=== PATIENT | female | born 1995 | race Caucasian/White ===

== ENCOUNTER 2021-04-12 05:45 | Observation (INO) | payer BC, SELFPAY ==
[2021-04-12] VITALS (12 sets, daily range): BP systolic 106–120; BP diastolic 59–88; PULSE 79–93; TEMP 36.8–36.9; BMI 27.1
--- NOTE | ~2021-04-12 | US_ITS ---
EXAMINATION: US OB limited EXAM DATE: 04/12/2021 07:44 INDICATION: Vaginal bleeding. 2nd trimester. TECHNIQUE: Pelvic obstetrical transabdominal sonogram was performed by a technologist. There are mu ltiple grayscale and Doppler images available for interpretation. There are no earlier studies of th is gestation for comparison. FINDINGS: There is a single fetus identified in vertex presentation with a heart rate of 144 beats pe r minute. The placenta is located in the posterior previa position, placental margin appears to be co vering the internal cervical os. There is no sonographic evidence of retroplacental hemorrhage ident ified. IMPRESSION: 1. Single fetus in vertex presentation with heart rate 144 beats per minute. 2. Placenta posterior previa in position, margin appears to be covering the internal cervical os. Fo llow-up indicated. Reviewed, dictated and finalized at location D. IMPRESSION: 1. Single fetus in vertex presentation with heart rate 144 beats per minute. 2. Placenta posterior previa in position, margin appears to be covering the in ternal cervical os. Follow-up indicated.
--- NOTE | 2021-04-12 06:37 | OBADM ---
This patient, Sade Jose, admitted to the OB room OB Post 117 for observation. Patient/family oriented to hospital policies and general routines including ID bracelet, bed and alarms, visiting hours, pain management, procedures, bathroom and other care routines, personal items, smoking policy, room service/diet, and visiting hours. Patient/Family are encouraged to report perceived risks to care and to ask questions if they do not understand what they are told or what they should do.
--- NOTE | 2021-04-12 08:25 | PM.IMHP ---
H&P: HPI History of Present Illness Date/Time: 04/12/21 08:25 this patient is a 25-year-old multiparous female at 17 weeks gestation who presented with bright red vaginal bleeding. There was a moderate to heavy amount of bleeding at times. She denies any cramping. She denies any nausea, vomiting, fever, chills. She denies any recent intercourse. She denies any recent excessive physical activity. She denies any chest pain or shortness of breath. She denies any loss of fluid. Chief Complaint: Vaginal bleeding Review of Systems Review of Systems: All systems reviewed & are unremarkable except as noted in HPI and below Meds Home Medications and Allergies Allergies Allergy/AdvReac Type Severity Reaction Status Date / Time No Known Allergies Allergy Unknown Unverified 04/30/19 03:15 Vital Signs Vital Signs - 24 hr 04/12/21 06:09 04/12/21 06:15 04/12/21 06:30 Pulse Rate 87 85 93 Blood Pressure 108/71 114/74 106/88 04/12/21 08:01 Pulse Rate 85 Blood Pressure 108/59 L Exam Const: General: healthy appearing, comfortable and no acute distress Resp: Auscultation: clear to auscultation bilaterally, no rales, no rhonchi and no wheezes Cardio: Rate: regular rate Heart sounds: no click, no murmurs and no rubs GI: Inspection: non-distended Auscultation: normal bowel sounds Extrem: General: normal to inspection, no pedal edema and no calf tenderness Assessment and Plan Assessment and plan (1) Partial placenta previa with hemorrhage during in second trimester: Code(s): O44.32 - Partial placenta previa with hemorrhage, second trimester Status: Acute Additional Plan 25-year-old at 17 weeks, multiparous, placenta previa, complete previa. Observed. Ultrasound today revealed previa. She had 2 episodes of bleeding at this point. We are going to continue to observe. She will be discharged if there is a significant period of no bleeding.
[2021-04-12 09:06] LABS: Hematocrit 37.2 % (37.0-47.0); Hemoglobin 12.2 g/dL (12.0-15.0); Mean Corpuscular HGB Conc 32.8 g/dl (32-36); Mean Corpuscular Hemoglobin 30.5 pg (26-34); Mean Platelet Volume 9.1 fl (7.4-10.4); Platelet Count Result 192 k/mm3 (150-375); Red Cell Distribution Width 12.5 % (11.5-14.5); White Blood Count 8.4 K/mm3 (4.5-10.0)
[2021-04-12] MEDS: ACETAMINOPHEN 325 MG TABLET 650 MG PO (16:42)
[2021-04-13] VITALS (9 sets, daily range): BP systolic 109–125; BP diastolic 56–70; PULSE 72–87; TEMP 36.3–36.8; O2SAT 99
--- NOTE | 2021-04-13 07:22 | WPDHPUPDATE1 ---
History and Physical Update Update Date/Time: 04/13/21 07:22 Pt feeling well. Did have 1 episode of bleeding overnight where she passed blood that weighed 95cc. Since has had spotting. VSS Scant spotting on pad. No active bleeding. Plan to continue observation. History and Physical has been reviewed, including an updated exam of the patient. There are NO changes in the patient's condition. Risks, benefits, and alternatives have been discussed and questions answered. Patient agrees to proceed with procedure.
[2021-04-13 11:45] LABS: Hematocrit 35.5 % (37.0-47.0); Hemoglobin 11.8 g/dL (12.0-15.0)
--- NOTE | 2021-04-13 13:37 | PCDIET ---
calld Libra and updated pt condition and H/H result. discharge order received with follow up in early next week.
== END 2021-04-13 14:40 | disposition home or self-care (01) ==
PROVIDERS: Advanced Practice Midwife; Admitting Provider Obstetrics & Gynecology; Visit Provider Obstetrics & Gynecology
DX: O44.32 Partial placenta previa with hemorrhage, second trimester (principal); Z3A.17 17 weeks gestation of pregnancy
CPT/HCPCS: 36415; 76815; 85014; 85018; 85027; 86850; 86900; 86901; A9270; G0378; G0379

== ENCOUNTER 2021-06-03 22:28 | Observation (INO) | payer BC, SELFPAY ==
--- NOTE | ~2021-06-03 | US_ITS ---
EXAMINATION: US OB limited DATE: 06/04/2021 00:30 INDICATION: Spotting. Second trimester. TECHNIQUE: Real-time ultrasound of the pelvis was performed. COMPARISON: Ultrasound 04/12/2021 FINDINGS: There is a single fetus in transverse lie. The placenta is posterior and covers the cervix. There ar e multiple small subchorionic hematomas measuring up to 2.1 x 0.6 x 2.0 cm. heart rate is 138 b eats per minute (bpm). The amniotic fluid index is 11.8 cm cm, which is normal. IMPRESSION: 1. Single living fetus in transverse lie. 2. Placenta previa. 3. Small subchorionic hematomas. Reviewed, dictated and finalized at location A. [employer]
[2021-06-03 23:12] VITALS: BP 112/60; PULSE 83
[2021-06-03 23:30] VITALS: BP 107/67; PULSE 84
[2021-06-04] VITALS: BP 106/67; PULSE 83
[2021-06-04] MEDS: LACTATED RINGERS 1,000 ML 125 ML IV CONT (00:35)
[2021-06-04 00:49] LABS: Add Urine Microscopic? YES; Appearance Urine Clear (Clear); Bilirubin Urine Negative (Negative); Blood Urine 2+ (Negative); Color Urine Straw (Yellow); Glucose Urine UA Negative (Negative); Ketones Urine Negative (Negative); Leukocyte Esterase Ur Negative LEU/UL (Negative); Mucus Urine Rare /lpf; Nitrate Urine Negative (Negative); Protein Urine Negative (Negative); RBC Urine 0-2 /hpf (0-2); Specific Grav Ur 1.008 (1.001-1.035); Squamous Epithelial Cell Urine Rare /hpf (Few); Urobilinogen Urine Negative mg/dL (<2.0); WBC Urine 0-3 /hpf
[2021-06-04] MEDS: BETAMETHASONE SOD PHOS/ACETATE 30 MG/5 ML VIAL 12 MG IM (03:04)
[2021-06-04 06:32] VITALS: TEMP 37.3
[2021-06-04 06:36] VITALS: BP 110/66; PULSE 85
[2021-06-04 06:59] VITALS: BMI 27.1
--- NOTE | 2021-06-04 08:24 | P.HP_ITS ---
H&P: HPI History of Present Illness Date/Time: 06/04/21 08:24 Chief Complaint: bleeding with previa Narrative: Sade is at 25+ weeks who has known placenta previa and borderline vasa previa per [facility]. She had some spotting and presented overnight. NO spotting since. Is on light activity and pelvic rest and has been following both of these. Denies pain, contractions, leaking. Good FM. Did have a pos ROM plus on admission, but qtip had some blood on it. ANITA was 11+. Review of Systems Review of Systems: All systems reviewed & are unremarkable except as noted in HPI and below Meds Home Medications and Allergies Home Medications Medication Instructions Recorded Confirmed Type 1 tablet PO DAILY 04/12/21 06/04/21 History Allergies Allergy/AdvReac Type Severity Reaction Status Date / Time No Known Allergies Allergy Unknown Unverified 04/30/19 03:15 Vital Signs Vital Signs - 24 hr 06/03/21 23:12 06/03/21 23:30 06/04/21 00:00 Temperature Pulse Rate 83 84 83 Blood Pressure 112/60 107/67 106/67 06/04/21 06:32 06/04/21 06:36 Temperature 99.1 F Pulse Rate 85 Blood Pressure 110/66 Exam Const: General: no acute distress Resp: Effort & Inspection: normal respiratory effort Auscultation: clear to auscultation bilaterally Cardio: Rate: regular rate Rhythm: regular rhythm GI: GI Palp: Yes Soft to palpation Extrem: General: normal to inspection H&P: Results Labs Labs: Urine 06/04/21 Range/Units 00:40 Urine Color Straw (Yellow) Urine Appearance Clear (Clear) Urine pH 7.0 (5.0-9.0) Ur Specific [place] 1.008 (1.001-1.035) Urine Protein Negative (Negative) mg/dL Urine Glucose (UA) Negative (Negative) mg/dL Assessment and Plan Assessment and plan (1) Partial placenta previa with hemorrhage during in second trimester: Code(s): O44.32 - Partial placenta previa with hemorrhage, second trimester Status: Acute Additional Plan Received first celestone. will get second outpatient if DCed. no further spotting. will ambulate this am, if no further bleeding, may DC home. Has FU with [facility] tomorrow.
== END 2021-06-04 09:24 | disposition home or self-care (01) ==
PROVIDERS: Advanced Practice Midwife; Admitting Provider Obstetrics & Gynecology; Visit Provider Obstetrics & Gynecology
DX: O44.32 Partial placenta previa with hemorrhage, second trimester (principal); Z3A.25 25 weeks gestation of pregnancy
CPT/HCPCS: 76815; 81001; 84112; 96360; 96361; 96372; G0378; G0379; J0702; J7120

== ENCOUNTER 2021-06-05 08:08 | Outpatient (CLI) | payer BC, SELFPAY ==
[2021-06-05] MEDS: BETAMETHASONE SOD PHOS/ACETATE 30 MG/5 ML VIAL 12 MG IM (08:37)
== END 2021-06-05 08:09 | disposition home or self-care (01) ==
LOC: ANHOBOP 08:15
PROVIDERS: Visit Provider Obstetrics & Gynecology
DX: O36.8990 Maternal care for other specified fetal problems, unspecified trimester, not applicable or unspecified (principal)
CPT/HCPCS: 96372; J0702

== ENCOUNTER 2021-09-10 07:08 | Inpatient (IN) | payer BC, SELFPAY ==
[2021-09-10] VITALS (29 sets, daily range): BP systolic 84–128; BP diastolic 39–97; PULSE 71–113; RESP 16; TEMP 36.8–37.2; O2SAT 100; BMI 29.0
--- OUTSIDE RECORDS SUMMARY | 2021-09-10 07:12 | XMS_ITS | Encounter Summary ---
:1995 Author Reason for Visit OB visit [id number] EDC 09/14/2021 LMP 01/05/2021 Assessment and Plan Assessment Note Patient is _34__weeks . Dis cussed plan. 1. Routine care Discussion Note: None recorded.Patient educational handouts: No information available. Plan of Care Reminders Provider Appointments None ? ? recorded. Lab None ? ? recorded. Referral None ? ? recorded. Procedures None ? ? recorded. Surgeries None ? ? recorded. Imaging None ? ? recorded. Medications Name Start Date ? ? nifedipine 10 mg capsule ? TAKE 1 CAPSULE BY MOUTH EVERY 4 HOURS NEEDED FOR C RAMPING / CONTRACTIONS ? Medications Administered None recorded. Vitals Height Weight BMI Blood Pressure 5 ft 7 in 204 lbs 32 kg/m2 119/76 mm[Hg] Results Lab Results None recorded. Allergies Code Code System Name Reaction Severity Onset NKDA ? ? ? Problems Name Status Onset Date Source ? Active 03/12/2021 ? Subchorionic Hematoma Active ? ? Proc
--- OUTSIDE RECORDS SUMMARY | 2021-09-10 07:12 | XMS_ITS | Encounter Summary ---
:1995 Author Reason for Visit OB visit OB [id number] EDC 09/14/2021 LMP 01/05/2021 Assessment and Plan Assessment Note Patient is __36_weeks . Dis cussed plan. 1. Routine care [...] ft 7 in 204 lbs 32 kg/m2 109/73 mm[Hg] Results Lab Results None recorded. Allergies Code Code System Name Reaction Severity Onset NKDA ? ? ? Problems Name Status Onset Date Source ? Active 03/12/2021 ? Subchorionic Hematoma Active ? ? Pro
--- OUTSIDE RECORDS SUMMARY | 2021-09-10 07:12 | XMS_ITS ---
:1995 Author Care Team Providers Name Role Phone Shari Chowdhury Primary Care Provider Unavailable Allergies Code Code System Name Reaction Severity Status Onset NKDA ? Medications Name Status Start Date Stop Date ? ? nifedipine 10 mg capsule Active ? Not wyatt ilable TAKE 1 CAPSULE BY MOUTH EVERY 4 HOURS NEEDED FOR CRAMPING / CONTRACTIONS Active ? Not available Triveen-Duo DHA 29 mg-1 mg-400 mg oral pack Completed 11/2502/27/2021 take 1 by Oral route Viberzi 75 mg tablet Completed ? 02/27/2021 take 1 tablet by oral route 2 times every day Problems Name Status Onset Date Source ? SNOMED CT Concept Unknown 03/03/[address] Concept Unknown 03/03/2016 History Active 03/12/2021 ? Placenta Previa with Hemorrhage Unknown ? ? Placenta Succenturiata Unknown ? ? Subchorionic Hematoma Active ? ? Low Lying Placenta Unknown ? ? Procedures Date Name Performed by ? 07/27/2008 Meniscal Trnspl Knee W/scpe Information not available 03/04/2021 US, Obstetric, 1St Trimester [place] [address] [place] [address] ([address]) 03/12/2021 US, Obstetric, Nuchal Translucency [place] [address] [place] [address]
--- OUTSIDE RECORDS SUMMARY | 2021-09-10 07:12 | XMS_ITS | Encounter Summary ---
:1995 Author Reason for Visit OB visit OB [id number] EDC 09/14/2021 LMP 01/05/2021 Assessment and Plan Assessment Note Patient is 37___weeks . Dis cussed plan. 1. test positive Discussion Note: None recorded.Patient educational handouts: No [...] BMI Blood Pressure 5 ft 7 in 205 lbs 32.1 kg/m2 114/73 mm[Hg] Results Lab Results None recorded. Allergies Code Code System Name Reaction Severity Onset NKDA ? ? ? Problems Name Status Onset Date Source ? Active 03/12/2021 ? Subchorionic Hematoma Active ? ? Pr
--- OUTSIDE RECORDS SUMMARY | 2021-09-10 07:12 | XMS_ITS | Encounter Summary ---
:1995 Author Reason for Visit OB visit Assessment and Plan 1. Placenta succenturiata Discussion Note: None recorded.Patient educational handouts: No [...] BMI Blood Pressure 5 ft 7 in 192 lbs 30.1 kg/m2 117/73 mm[Hg] Results Lab Results None recorded. Allergies Code Code System Name Reaction Severity Onset NKDA ? ? ? Problems Name Status Onset Date Source ? Active 03/12/2021 ? Subchorionic Hematoma Active ? ? Procedures Date Name Performed by ? 07/27/2008 Meniscal Trnspl Knee W/scpe Information not avail
--- OUTSIDE RECORDS SUMMARY | 2021-09-10 07:12 | XMS_ITS | Encounter Summary ---
:1995 Author Reason for Visit OB visit Assessment and Plan 1. Low lying placenta 2. Subchorionic hematoma Discussion Note: None recorded.Patient educational handouts: No [...] BMI Blood Pressure 5 ft 7 in 200 lbs 31.3 kg/m2 112/72 mm[Hg] Results Lab Results None recorded. Allergies Code Code System Name Reaction Severity Onset NKDA ? ? ? Problems Name Status Onset Date Source ? Active 03/12/2021 ? Subchorionic Hematoma Active ? ? Procedures Date Name Performed by ?
--- OUTSIDE RECORDS SUMMARY | 2021-09-10 07:12 | XMS_ITS | Encounter Summary ---
:1995 Author Reason for Visit OB visit Assessment and Plan 1. Subchorionic hematoma 2. Routine care Discussion Note: None recorded.Patient educational [...] BMI Blood Pressure 5 ft 7 in 202 lbs 31.6 kg/m2 115/73 mm[Hg] Results Lab Results None recorded. Allergies Code Code System Name Reaction Severity Onset NKDA ? ? ? Problems Name Status Onset Date Source ? Active 03/12/2021 ? Subchorionic Hematoma Active ? ? Procedures Date Name Performed by ?
--- NOTE | 2021-09-10 07:39 | PM.IMHP ---
H&P: HPI History of Present Illness Date/Time: 09/10/21 07:39 Chief Complaint: induction of labor Narrative: Sade is a 25yo at 39w3d for eIOL. Her has been complicated by a large MARIA ELENA, up to 14cm at one point, but has been resolving since. She also had a previa which resolved. Review of Systems Review of Systems: All systems reviewed & are unremarkable except as noted in HPI and below PMFSH Family History Family History (Updated 08/15/21 @ 13:48 by Sharona Guerrero RN) Other No pertinent family history Social History Social History Substance use: never Spiritual care concerns: No Meds Home Medications and Allergies Home Medications Medication Instructions Recorded Confirmed Type 1 tablet PO DAILY 04/12/21 08/15/21 History Allergies Allergy/AdvReac Type Severity Reaction Status Date / Time No Known Allergies Allergy Unknown Unverified 04/30/19 03:15 Exam Const: General: no acute distress Resp: Effort & Inspection: normal respiratory effort Auscultation: clear to auscultation bilaterally Cardio: Rate: regular rate Rhythm: regular rhythm GI: GI Palp: Yes Soft to palpation : Other: Extrem: General: normal to inspection Assessment and Plan Additional Plan Here for induction of labor- GBS pos FHT category 1
[2021-09-10 07:47] LABS: Basophils Percent Auto 0.5 % (0.2-1.2); Eosinophils Absolute Auto 0.1 K/mm3 (0-0.3); Hematocrit 36.9 % (37.0-47.0); Hemoglobin 11.9 g/dL (12.0-15.0); Immature Granulocyte Absolute 0.06 K/mm3 (0.00-0.031); Immature Granulocyte Percent A 0.8 % (0-0.5); Lymphocytes Absolute Auto 1.34 K/mm3 (0.9-3.2); Lymphocytes Percent Auto 16.8 % (18.3-44.2); Mean Corpuscular HGB Conc 32.2 g/dl (32-36); Mean Corpuscular Hemoglobin 27.5 pg (26-34); Mean Corpuscular Volume 85.4 fl (80-100); Mean Platelet Volume 9.2 fl (7.4-10.4); Monocytes Absolute Auto 0.4 K/mm3 (0.1-0.6); Monocytes Percent Auto 4.4 % (2.6-8.5); Neutrophils Absolute Auto 6.1 K/mm3 (1.3-6.7); Neutrophils Percent Auto 76.5 % (45.5-73.1); Platelet Count Result 159 k/mm3 (150-375); Red Blood Count 4.32 M/mm3 (4.2-5.4); Red Cell Distribution Width 13.6 % (11.5-14.5)
[2021-09-10] MEDS: AMPICILLIN 2 GM/NS 100 ML 2 GM/100 ML BAG IVPB (07:50)
[2021-09-10] MEDS: OXYTOCIN 30 UNITS/NS 500 ML 30 UNITS/500 ML BAG IV CONT ×2 (07:50→21:10)
--- NOTE | 2021-09-10 08:07 | LDADM ---
This patient, Sade Jose, was admitted to Labor/Delivery/Recovery 106 on 09/10/21 at 07:08. Plans for labor, pain management and were discussed with patient. Patient/family oriented to hospital policies and general routines including ID bracelet, bed and alarms, visiting hours, pain management, procedures, bathroom and other care routines, personal items, smoking policy, room service/diet and guest tray routines, infant security routines, and visiting hours. Patient/Family are encouraged to report perceived risks to care and to ask questions if they do not understand what they are told or what they should do. See OBIX for further documentation.
[2021-09-10] MEDS: LACTATED RINGERS 1,000 ML 125 ML IV CONT ×2 (08:12→17:53)
[2021-09-10] MEDS: AMPICILLIN 1 GM/NS 50 ML 1 GM/50 ML BAG IVPB ×3 (12:04→20:15)
[2021-09-10] MEDS: miSOPROStol 200 MCG TABLET 1000 MCG (20:40)
[2021-09-10] MEDS: LIDOCAINE HCL 1% PF 30 ML VIAL (20:45)
[2021-09-10] MEDS: METHYLERGONOVINE MALEATE 0.2 MG/ML VIAL IM (20:47)
[2021-09-10] MEDS: MORPHINE SULFATE (*CRX) 2 MG/ML INJ (20:58)
--- NOTE | 2021-09-10 21:08 | PM.OBPRVD ---
OB - Delivery Note Procedure Delivery date: 09/10/21 Procedure: Events: Elective Induction of Labor Induction method: AROM and Per Pitocin Protocol Delivery monitor: External FHT and External Uterine Route of delivery: Laceration Description: Perineal - 2nd Degree Delivery repair: vicryl Specimen: Yes (placenta) Quantitative Blood Loss (ml): 760 Anesthesia type: None Disposition: floor Narrative: With adequate expulsive efforts by the mother, the baby's head was delivered OA. The baby's anterior shoulder was delivered under the pubic symphysis without difficulty. The posterior shoulder and the rest of the baby delivered without difficulty. The infant was placed on the mothers chest and suctioned and stimulated. The cord was clamped and cut after 30 seconds. Mother and baby both stable. Uterine atony was encountered following the delivery of the placenta. Pitocin, methergine, and cytotec were given with significant improvement. Baby Date of : 09/10/21 Time of : 20:30 Weeks of gestation at delivery: 39 gender: Female Weight (pounds): 7 Weight (ounces): 1 presentation: vertex Placenta delivery description: Spontaneous Cord Vessel Description: 3 Vessels, Nuchal Cord and Delayed Cord Clamping score one minute: 8 score five minutes: 9
[2021-09-10 23:05] LABS: Hematocrit 36.9 % (37.0-47.0); Hemoglobin 11.8 g/dL (12.0-15.0)
--- NOTE | 2021-09-10 23:31 | OBPPTRN ---
Patient transferred to post room #291 via wheelchair. Support person present. Oriented to unit, room, information board, rooming in, admission packet and security measures. Patient verbalizes understanding.
[2021-09-11 04:00] VITALS: BP 109/75; PULSE 72; RESP 16; TEMP 37.1; O2SAT 100
[2021-09-11] MEDS: IBUPROFEN 600 MG TABLET PO (04:05)
[2021-09-11] MEDS: ACETAMINOPHEN 325 MG TABLET 650 MG PO (04:05)
[2021-09-11 05:01] LABS: Hematocrit 34.7 % (37.0-47.0); Hemoglobin 11.1 g/dL (12.0-15.0)
[2021-09-11 05:56] LABS: Rapid Plasma Reagin Non-Reactive (NonReactive)
[2021-09-11 07:00] VITALS: BP 107/59; PULSE 77; RESP 18; TEMP 36.4; O2SAT 98
--- NOTE | 2021-09-11 07:00 | PC.NURSE ---
PT introductions made and plan of care discussed per post , pain management, breast feeding, daily care activities. PT sole recipient of such instructions and no barriers to learning noted. PT received instructions per one to one discussion, mom baby care guide book and demonstrations this shift. PT verbalized understanding of such care.
--- NOTE | 2021-09-11 07:34 | PM.OBPNVD ---
OB - PN: Subj Subjective Date/time seen: 09/11/21 07:34 Patient comments: no complaints and pain well controlled baby status: doing well and nursing well OB - PN: Obj Data Labs CBC & Chem 7: 09/11/21 04:12 Labs: Laboratory Results - last 24 hr 09/10/21 09/10/21 09/10/21 07:40 07:40 07:40 WBC 8.0 RBC 4.32 Hgb 11.9 L Hct 36.9 L MCV 85.4 MCH 27.5 MCHC 32.2 RDW 13.6 Plt Count 159 MPV 9.2 Immature Gran % (Auto) 0.8 H Neut % (Auto) 76.5 H Lymph % (Auto) 16.8 L Beadle % (Auto) 4.4 Eos % (Auto) 1.0 Baso % (Auto) 0.5 Lymph # (Auto) 1.34 Beadle # (Auto) 0.4 Eos # (Auto) 0.1 Baso # (Auto) 0.0 Abs Immat Gran (auto) 0.06 H Absolute Neuts (auto) 6.1 Absolute Nucleated RBC 0.0 Nucleated RBC % 0.0 RPR Non-reactive Blood Type O Positive Antibody Screen Negative 09/10/21 09/11/21 22:33 04:12 WBC RBC Hgb 11.8 L 11.1 L Hct 36.9 L 34.7 L MCV MCH MCHC RDW Plt Count MPV Immature Gran % (Auto) Neut % (Auto) Lymph % (Auto) Beadle % (Auto) Eos % (Auto) Baso % (Auto) Lymph # (Auto) Beadle # (Auto) Eos # (Auto) Baso # (Auto) Abs Immat Gran (auto) Absolute Neuts (auto) Absolute Nucleated RBC Nucleated RBC % RPR Blood Type Antibody Screen OB - PN A/P Assessment and Plan (1) , delivered: Code(s): O80 - Encounter for full-term uncomplicated delivery Status: Acute (2) hemorrhage: Code(s): O72.1 - Other immediate hemorrhage Status: Acute Plan day: 1 Plan: routine care Comments: Doing great. Suspect Hgb is not accurate given hemorrhage, but given pt is asymptomatic, will not repeat. DC home tomorrow. Time Spent With Patient Time: Total time spent is greater than 50% in coordination of care (as documented) at patient's floor/unit and/or counseling patient: Time with patient: less than 15 minutes Exam Narrative: NAD abdomen soft, nontender, fundus firm below the umbilicus Extremities nontender, 1+ edema
[2021-09-11] MEDS: MULTIVIT/MIN/PREN/FOL AC/IRON TABLET 1 TAB PO (08:27)
[2021-09-11] MEDS: DOCUSATE SODIUM 100 MG CAPSULE PO ×2 (08:28→17:02)
[2021-09-11 09:30] VITALS: PULSE 77; RESP 18; O2SAT 98
[2021-09-11] MEDS: POLYSACCHARIDE IRON COMPLEX 150 MG CAPSULE PO ×2 (09:51→17:02)
--- NOTE | 2021-09-11 10:04 | PC.NURSE ---
1000 - Introductions were made and mother led the discussion of her desires to her baby. Mother states she breastfed her first two children for a year. Mother verbalizes she is able to independently latch without any discomfort. Mother voiced understanding to feed when she sees feeding cues, 8-12 times in 24 hours approximately every 2-3 hours from the start of the last feeding, to call for assistance if there's no latch or she has discomfort with nursing. Reported to primary RN.
[2021-09-11 12:08] VITALS: BP 102/65; PULSE 79; RESP 16; TEMP 37; O2SAT 99
[2021-09-11 16:30] VITALS: BP 114/70; PULSE 82; RESP 18; TEMP 36.8; O2SAT 100
[2021-09-11 20:30] VITALS: BP 105/70; PULSE 76; RESP 16; TEMP 36.9; O2SAT 99
[2021-09-12 07:40] VITALS: BP 103/59; PULSE 72; RESP 16; TEMP 37.1; O2SAT 100
[2021-09-12] MEDS: MULTIVIT/MIN/PREN/FOL AC/IRON TABLET 1 TAB PO (08:06)
[2021-09-12] MEDS: DOCUSATE SODIUM 100 MG CAPSULE PO (08:12)
--- NOTE | 2021-09-12 08:30 | P.DS_ITS ---
DS: Admitting Diagnosis Discharge Date 09/12/21 Admitting Diagnosis Labor OB - DS: Summary OB Procedures : None OB Procedures Intrapartum: Spontaneous Vag Delivery OB Procedures: : None Time Spent with Patient Time attestation: Total time spent providing and/or coordinating discharge services: DS: Data Data Completed and Pending Pending studies at discharge: Pending at discharge 09/10/21 21:00 Surgical [PTH] Routine Discharge Plan Discharge Attending physician on discharge: Shari hCowdhury Consulting providers: Libra Coon Discharging Clinician: Libra Coon Patient Disposition: Home, Self-Care Activity: pelvic rest Diet: as tolerated Discharge Instructions: Education: Mom and Baby Guide Given to: Mother Follow-Up: Call your delivering provider's office for an appointment to be seen in: Call for appointment Mom and baby should come to the [facility] for the follow-up appointment. Appointment Date/Time: September 13, 2021 at 10:00 am What to expect at your follow-up visit: Physical Assessment Call [phone] if you are unable to keep your appointment time. BREAST CARE: * Wear a snug supportive bra. * For engorgement discomfort: Breast Feeding: * Apply warm moist washcloths * Express milk as needed to relieve engorgement * Wear loose clothing * For sore nipples: * Identify correct latch-on * Apply warm moist washcloths before and after nursing * Air dry nipples after nursing * May apply Lansinoh cream to nipples EPISIOTOMY/PERINEAL CARE: * Until bleeding stops, use your natalya bottle after urinating * Change your pad frequently throughout the day * You may take sitz baths several times a day (fill your bathtub with warm water and soak for 20 minutes.) Do NOT bathe in the water * No tub baths until seen by your physician - You may shower ACTIVITY: * Rest as much as possible. * Do not exercise or lift anything heavier than your baby (such as laundry or other children.) * Avoid stairs or driving as much as possible. * Do not put anything into the vagina. No douching, tampons, or sexual activity until seen by physician. NOTIFY PHYSICIAN IF YOU HAVE ANY QUESTIONS OR IF ANY OF THE FOLLOWING SYMPTOMS OCCUR: * If your episiotomy or incision becomes red, swollen, or more painful than what you have experienced in the hospital. * If your vaginal bleeding becomes foul smelling. * If your vaginal bleeding becomes more heavy than a period or if your bleeding changes from pink to bright red. However, you may pass an occasional walnut- sized clot once or twice for the first week . * If you experience a sharp, shooting pain in you calves. * If you discover a hard, reddened area on your breast or if you experience flu- like symptoms. DIET: * Eat regular, well-balanced meals. * Drink plenty of fluids daily. If , drink to thirst. Stand Alone Forms: General Discharge Information Follow-up/Referrals: Shari Chowdhury MD [Physician] - Discharge Medications: Continued 28-800 mg-mcg Tablet 1 tablet PO DAILY RF: 0 Date of admission: 09/10/21 07:08 Primary Care Provider: PHYSICIAN,TELEPHONE STATION REPAIRER Admitting Provider: Shari Chowdhury Attending physician on admission: Shari Chowdhury Condition: Stable
--- NOTE | 2021-09-12 08:31 | PM.OBPNVD ---
OB - PN: Subj Subjective Date/time seen: 09/12/21 08:31 Patient comments: no complaints baby status: doing well OB - PN: Obj Data Labs CBC & Chem 7: 09/11/21 04:12 OB - PN A/P Plan day: 2 Plan: routine care and discharge home (F/U in 4 weeks) Time Spent With Patient Time: Total time spent is greater than 50% in coordination of care (as documented) at patient's floor/unit and/or counseling patient: Time with patient: less than 15 minutes Review of Systems Review of Systems: All systems reviewed & are unremarkable except as noted in HPI and below Exam Narrative: Fundus firm and vaginal flow controlled. No lower ext redness, warmth, or edema. Negative homans. Const: General: comfortable Chest: Breast/axilla inspection: normal inspection of the breasts Resp: Effort & Inspection: normal respiratory effort Cardio: Rate: regular rate GI: GI Palp: Yes Soft to palpation Psych: Appearance: grossly normal Affect: normal affect Attitude: cooperative Thought content: Yes Normal thought content present Judgement: Good judgement present (Psych)
--- NOTE | 2021-09-12 09:39 | PC.NURSE ---
Patient viewed the discharge video Mother & Baby Care, The First Two Weeks . Patient was given the opportunity and encouraged to ask questions. Patient verbalized understanding of information shared and has been given the mother/baby guide for home reference.
[2021-09-13 10:41] VITALS: BP 111/69; PULSE 91; RESP 20; TEMP 36.8; O2SAT 99
== END 2021-09-12 13:20 | disposition home or self-care (01) | DRG 807 ==
LOC: ANHLDR 07:10 → ANHOB2 23:45
PROVIDERS: Admitting Provider Obstetrics & Gynecology; Visit Provider Obstetrics & Gynecology
DX: O99.824 Streptococcus B carrier state complicating childbirth (principal); Z37.0 Single live birth; Z3A.39 39 weeks gestation of pregnancy; O72.1 Other immediate postpartum hemorrhage; O70.1 Second degree perineal laceration during delivery
CPT/HCPCS: 36415; 85014; 85018; 85025; 86592; 86850; 86900; 86901; 88307; A9270; J0290; J2210; J2270; J2590; J7120

== ENCOUNTER 2024-01-01 06:00 | Inpatient (IN) | payer BC, SELFPAY ==
[2024-01-01] VITALS (32 sets, daily range): BP systolic 96–133; BP diastolic 63–84; PULSE 83–114; RESP 16–18; TEMP 36.3–37.2; O2SAT 99–100; BMI 30.7
--- NOTE | 2024-01-01 06:29 | LDADM ---
This patient, Sade Jose, was admitted to Labor/Delivery/Recovery 107 on 01/01/24 at 06:00. Plans for labor, pain management and were discussed with patient. Patient/family oriented to hospital policies and general routines including ID bracelet, bed and alarms, visiting hours, pain management, procedures, bathroom and other care routines, personal items, smoking policy, room service/diet and guest tray routines, infant security routines, and visiting hours. Patient/Family are encouraged to report perceived risks to care and to ask questions if they do not understand what they are told or what they should do. See OBIX for further documentation.
[2024-01-01 06:45] LABS: Basophils Percent Auto 0.2 % (0.2-1.2); Eosinophils Percent Auto 0.3 % (0-4.4); Hematocrit 39.7 % (37.0-47.0); Hemoglobin 12.6 g/dL (12.0-15.0); Immature Granulocyte Absolute 0.11 K/mm3 (0.00-0.031); Immature Granulocyte Percent A 0.9 % (0-0.5); Mean Corpuscular HGB Conc 31.7 g/dl (32-36); Mean Corpuscular Hemoglobin 28.1 pg (26-34); Mean Corpuscular Volume 88.6 fl (80-100); Mean Platelet Volume 9.7 fl (7.4-10.4); Monocytes Absolute Auto 0.5 K/mm3 (0.1-0.6); Monocytes Percent Auto 3.9 % (2.6-8.5); Neutrophils Absolute Auto 10.4 K/mm3 (1.3-6.7); Neutrophils Percent Auto 85.7 % (45.5-73.1); Platelet Count Result 170 k/mm3 (150-375); Red Blood Count 4.48 M/mm3 (4.2-5.4); Red Cell Distribution Width 13.1 % (11.5-14.5); White Blood Count 12.2 K/mm3 (4.5-10.0)
[2024-01-01] MEDS: LACTATED RINGERS 1,000 ML 125 ML IV CONT (07:21)
[2024-01-01] MEDS: OXYTOCIN 30 UNITS/NS 500 ML 30 UNITS/500 ML BAG IV CONT (07:27)
[2024-01-01 07:37] LABS: HIV 1/2 Ab P24 Ag Result Negative (Negative)
--- NOTE | 2024-01-01 09:12 | PM.IMHP ---
H&P: HPI History of Present Illness Date/Time: 01/01/24 09:12 Chief Complaint: elective induction of labor Narrative: Patient is a 28 year old who presents for elective induction of labor. Her has been uncomplicated. She denies leakage of fluid or vaginal bleeding. She reports good movement. Intermittent contractions. Review of Systems Review of Systems: All systems reviewed & are unremarkable except as noted in HPI and below PMFSH Family History Family History Other No pertinent family history Social History Social History Smoking status: Never smoker Substance use: never Do You Feel Safe in your Home?: Yes Lack of Transportation: No Lack of Food: Never True Current Housing: I Have Housing Concerned About Future Housing: No Difficulty Paying Gas/Electric Bills: No Difficulty Paying for Meds: No Currently Unemployed: No Education: Bachelor's Degree Difficulty w/ Childcare or Family Care: No Spiritual care concerns: No Meds Home Medications and Allergies Home Medications Medication Instructions Recorded Confirmed Type vit no.133-ferrous 1 tablet PO DAILY 04/12/21 01/01/24 History fumarate 28 mg-folic acid 800 mcg tablet () cholecalciferol (vitamin D3) 100 4,000 unit PO DAILY 01/01/24 01/01/24 History mcg (4,000 unit) capsule Allergies Allergy/AdvReac Type Severity Reaction Status Date / Time No Known Allergies Allergy Unknown Verified 01/01/24 07:48 Vital Signs Vital Signs - 24 hr 01/01/24 06:47 01/01/24 07:23 01/01/24 07:28 Temperature 97.4 F L 98.6 F Pulse Rate 107 H 91 Respiratory Rate 18 16 Blood Pressure 119/80 118/76 Oxygen Delivery 01/01/24 07:30 01/01/24 08:31 01/01/24 09:01 Temperature Pulse Rate 102 H 98 87 Respiratory Rate Blood Pressure 115/79 116/78 127/78 Oxygen Delivery 01/01/24 06:28 Temperature Pulse Rate Respiratory Rate Blood Pressure Oxygen Delivery Room Air Exam Const: General: comfortable and no acute distress HENMT: Mouth: Yes moist mucous membranes Eyes: General: appearance normal, both eyes and all related structures Resp: Effort & Inspection: normal respiratory effort Cardio: Rate: regular rate Rhythm: regular rhythm : Other: 4/60/-3, AROM of large amount of clear fluid Skin: General skin exam: normal color Extrem: General: normal to inspection Psych: Mental Status: mental status grossly normal H&P: Results Labs Labs: Short CBC 01/01/24 Range/Units 06:14 WBC 12.2 H (4.5-10.0) K/mm3 Hgb 12.6 (12.0-15.0) g/dL Hct 39.7 (37.0-47.0) % Plt Count 170 (150-375) k/mm3 Assessment and Plan Assessment and plan (1) Encounter for elective induction of labor: Code(s): Z34.90 - Encounter for supervision of normal , unspecified, unspecified trimester Status: Acute
[2024-01-01 13:13] LABS: Rapid Plasma Reagin Non-Reactive (NonReactive)
[2024-01-01] MEDS: OXYTOCIN 30 UNITS/NS 500 ML 30 UNITS/500 ML BAG 125 UNITS IV CONT (14:42)
--- NOTE | 2024-01-01 16:12 | PM.OBPRVD ---
OB - Vaginal Delivery Note Procedure Delivery date: 01/01/24 Events: Elective Induction of Labor Induction method: Per Pitocin Protocol Delivery augmentation: Rupture of Membranes Route of delivery: Episiotomy description: None Laceration Description: Perineal - 1st Degree (hemostatic, unrepaired) Delivery repair: vicryl Specimen: No Quantitative Blood Loss (ml): 50 Anesthesia type: None Disposition: Floor Complications: No immediate complications Narrative: See H&P and notes for details on patient's admission and labor. She progressed to complete cervical dilation and at the appropriate time began pushing. With adequate expulsive efforts by the mother, the baby's head was delivered without difficulty. Nuchal cord was not present. The baby's right shoulder was anterior and delivered under the pubic symphysis without difficulty. The posterior shoulder and the rest of the baby delivered without difficulty. The umbilical cord was doubly clamped and cut after 60 seconds of delayed cord clamping. Care of the was then assumed by the nursing staff. Baby Date of : 01/01/24 Weeks of gestation at delivery: 39 Infant gender: Male presentation: vertex position: Left Occiput Anterior Placenta delivery description: Expressed Cord Vessel Description: 3 Vessels
[2024-01-02 05:38] LABS: Hematocrit 36.2 % (37.0-47.0); Hemoglobin 11.4 g/dL (12.0-15.0)
[2024-01-02 08:00] VITALS: BP 114/72; PULSE 75; RESP 16; TEMP 36.5; O2SAT 100
[2024-01-02] MEDS: DOCUSATE SODIUM 100 MG CAPSULE PO ×2 (08:16→16:39)
[2024-01-02] MEDS: MULTIVIT/MIN/PREN/FOL AC/IRON TABLET 1 TAB PO (08:16)
--- NOTE | 2024-01-02 08:27 | PM.OBDSVD ---
DS: Admitting Diagnosis Discharge Date 01/02/24 Admitting Diagnosis elective induction of labor DS: Discharge Diagnosis Discharge Diagnosis (1) (spontaneous vaginal delivery): Code(s): O80 - Encounter for full-term uncomplicated delivery Status: Acute OB - DS: Summary OB Procedures : None OB Procedures Intrapartum: Spontaneous Vag Delivery OB Procedures: : None Peripartum Data Laceration Description: Perineal - 1st Degree (hemostatic, unrepaired) Episiotomy description: None Time Spent with Patient Time attestation: Total time spent providing and/or coordinating discharge services: DS: Data Data Completed and Pending Labs on day of discharge: Labs from last 24 hours 01/02/24 01/01/24 05:02 06:14 Hgb 11.4 L Hct 36.2 L RPR Non-reactive Discharge Plan Discharge Attending physician on discharge: Basilio Mcnair Discharging Clinician: Basilio Mcnair Patient Disposition: Home, Self-Care Activity: may shower and pelvic rest Diet: as tolerated Patient Instructions: Antibiotic Form Stand Alone Forms: General Discharge Information Follow-up/Referrals: Basilio Mcnair MD [Physician] - 4 Weeks Discharge Medications: New docusate sodium 100 mg Capsule 100 mg PO BID PRN (Reason: Constipation) Qty: 60 0RF ibuprofen 600 mg Tablet 600 mg PO Q6H PRN (Reason: Cramping) Qty: 30 0RF Continued 28-800 mg-mcg Tablet 1 tablet PO DAILY Vitamin D3 100 mcg (4,000 unit) Capsule 4,000 unit PO DAILY Date of admission: 01/01/24 06:00 Primary Care Provider: UNKNOWN,DOCTOR Admitting Provider: Basilio Mcnair Attending physician on admission: Basilio Mcnair Condition: Stable
--- NOTE | 2024-01-02 10:08 | PM.OBPNVD ---
OB - PN: Subj Subjective Date/time seen: 01/02/24 10:08 Interval history: Doing well, PPD#1 Pain well controlled Tolerating general diet Voiding without issue , doing well OB - PN: Obj Data Labs 01/02/24 05:02 Labs: Laboratory Results - last 24 hr 01/01/24 01/02/24 06:14 05:02 Hgb 11.4 L Hct 36.2 L RPR Non-reactive OB - PN A/P Assessment and Plan (1) (spontaneous vaginal delivery): Code(s): O80 - Encounter for full-term uncomplicated delivery Status: Acute Time Spent With Patient Time: Total time spent is greater than 50% in coordination of care (as documented) at patient's floor/unit and/or counseling patient: Review of Systems Review of Systems: All systems reviewed & are unremarkable except as noted in HPI and below Exam Const: General: comfortable and no acute distress HENMT: Mouth: Yes moist mucous membranes Eyes: General: appearance normal, both eyes and all related structures Resp: Effort & Inspection: normal respiratory effort GI: GI Palp: Yes Soft to palpation and No Tenderness to palpation present (GI) Skin: General skin exam: normal color Extrem: General: normal to inspection Psych: Mental Status: mental status grossly normal
[2024-01-02 19:30] VITALS: BP 113/66; PULSE 82; RESP 16; TEMP 36.8; O2SAT 100
--- NOTE | 2024-01-03 08:33 | PM.OBPNVD ---
OB - PN: Subj Subjective Date/time seen: 01/03/24 08:33 Interval history: Doing well, PPD#2 Pain well controlled. minimal bleeding Tolerating general diet Voiding without issue , doing well Ready for discharge today OB - PN: Obj Data Labs 01/02/24 05:02 OB - PN A/P Assessment and Plan (1) (spontaneous vaginal delivery): Code(s): O80 - Encounter for full-term uncomplicated delivery Status: Acute Plan day: 2 Plan: routine care and discharge home Time Spent With Patient Time: Total time spent is greater than 50% in coordination of care (as documented) at patient's floor/unit and/or counseling patient: Review of Systems Review of Systems: All systems reviewed & are unremarkable except as noted in HPI and below Exam Const: General: comfortable and no acute distress HENMT: Mouth: Yes moist mucous membranes Eyes: General: appearance normal, both eyes and all related structures Resp: Effort & Inspection: normal respiratory effort GI: GI Palp: Yes Soft to palpation and No Tenderness to palpation present (GI) Skin: General skin exam: normal color Extrem: General: normal to inspection Psych: Mental Status: mental status grossly normal
[2024-01-03 08:48] VITALS: BP 99/62; PULSE 85; RESP 20; TEMP 37.1; O2SAT 99
[2024-01-03] MEDS: DOCUSATE SODIUM 100 MG CAPSULE PO (09:05)
[2024-01-03] MEDS: MULTIVIT/MIN/PREN/FOL AC/IRON TABLET 1 TAB PO (09:05)
[2024-01-04 15:51] VITALS: BP 99/62; PULSE 91; RESP 18; TEMP 37.1; O2SAT 100
== END 2024-01-03 12:10 | disposition home or self-care (01) | DRG 807 ==
LOC: ANHLDR 06:04 → ANHOB2 16:45
PROVIDERS: Admitting Provider Obstetrics & Gynecology; Visit Provider Obstetrics & Gynecology
DX: O70.0 First degree perineal laceration during delivery (principal); Z37.0 Single live birth; Z3A.39 39 weeks gestation of pregnancy
CPT/HCPCS: 36415; 85014; 85018; 85025; 86592; 86703; 86850; 86900; 86901; A9270; G0432; J2590; J7120

== ENCOUNTER 2025-07-16 17:32 | Emergency (ER) | payer BC, SELFPAY ==
[2025-07-16 17:42] VITALS: BP 108/72; PULSE 86; RESP 18; TEMP 36.6; O2SAT 100
--- NOTE | 2025-07-16 17:51 | ED_ITS ---
HPI - URI/Sore Throat General Chief Complaint: Upper Respiratory Infection Stated Complaint: Sore Throat Time Seen by Provider: 07/16/25 17:51 Source: patient, RN notes reviewed and old records reviewed Mode of arrival: ambulatory Limitations: no limitations History of Present Illness HPI Narrative: 29 year old female who presents to [facility] care with complaints of sore throat for the past 2 days. Patient reports that 2 of her 4 children have strep throat and her also tested positive for strep Patient has not taken any medications for her discomfort. MD elicited complaint: sore throat Pertinent past history: other (has had positive exposure to strep in family) Onset (ago): day(s) (2) Pain scale (0-10): 2 Able to tolerate fluids by mouth: Yes Treatments prior to arrival: none Related Data Home Medications ?Medication ?Instructions ?Recorded ?Confirmed ?Last Taken ?Type No Home Medications 07/16/25 07/16/25 U nknown History Allergies Allergy/AdvReac Type Severity Reaction Status Date / Time No Known Allergies Allergy Unknown Verified 07/16/25 17:44 Review of Systems Review of Systems: CONSTITUTIONAL: Denies malaise, chills, sweats, or fever. EYES: Denies visual changes, redness, or discharge. ENT: Reports rhinorrhea, congestion,no sinus pain,no otalgia and +sore throat. CARDIOVASCULAR: Denies chest pain, palpitations, or edema. RESPIRATORY: Reports no cough.? Denies dyspnea. GASTROINTESTINAL: Denies abdominal pain, nausea, vomiting, diarrhea SKIN: Denies rash or itching. MUSCULOSKELETAL: Denies myalgia. NEUROLOGIC: Denies headache. All systems reviewed & are unremarkable except as noted in HPI and below PMFSH Past Medical History Medical History Partial placenta previa with hemorrhage during in second trimester , delivered hemorrhage Encounter for elective induction of labor (spontaneous vaginal delivery) IBS (irritable bowel syndrome) Family History Family History Mother Cancer Grandparent Cancer Other No pertinent family history Social History Social History Smoking status: Never smoker Substance use: never Lack of Transportation: No Lack of Food: Never True Current Housing: I Have Housing Concerned About Future Housing: No Difficulty Paying Gas/Electric Bills: No Difficulty Paying for Meds: No Currently Unemployed: No Education: Bachelor's Degree Difficulty w/ Childcare or Family Care: No Living arrangements: with family Gender identity (if verbalized by the patient): Female Spiritual care concerns: No Agree to blood products: Yes Comments At time of signature, agree with nursing past medical, surgical, social and family history. There is no relevant family history pertinent to the presenting complaint Exam Narrative: GENERAL: Well-appearing, well-nourished, and in no acute distress. HEAD: Normocephalic EYES: PERRLA, conjunctivae clear ENT: Nares clear, turbinates edematous and erythematous, clear discharge. Mucous membranes moist. TM pearly [place] with dull light reflex bilaterally; no tragal tenderness. Oropharynx erythematous without lesions. Tonsils red not enlarged and without exudate, no drooling, no hoarseness, no trismus, uvula midline. has had positive exposure to strep NECK: Supple. No lymphadenopathy CHEST: Clear to auscultation, breath sounds equal. No wheezing, rhonchi, rales, or stridor. No respiratory distress, speaks in full sentences. no cough noted CAROLE 100% on room air is afebrile HEART: Regular rate and rhythm. No murmur heard. SKIN: Warm, dry, no rash. NEURO: Alert and oriented x3. PSYCH: Normal mood and affect Course Course Level of Care: Express Care Visit Vital Signs Vital signs: Vital Signs Temperature 36.6 C 07/16/25 17:42 Pulse Rate 86 07/16/25 17:42 Respiratory Rate 18 07/16/25 17:42 Blood Pressure 108/72 07/16/25 17:42 Pulse Oximetry 100 07/16/25 17:42 Oxygen Delivery Room Air 07/16/25 17:42 Temperature 36.6 C 07/16/25 17:42 Pulse Rate 86 07/16/25 17:42 Respiratory Rate 18 07/16/25 17:42 Blood Pressure 108/72 07/16/25 17:42 Pulse Oximetry 100 07/16/25 17:42 Oxygen Delivery Room Air 07/16/25 17:42 reviewed MDM MDM Narrative Medical decision making narrative: 29 year old female with complaints of sore throat for the past 2 days with positive exposure to strep from and children. Patient tested negative for strep and culture sent. Patient is appropriate for outpatient care and follow up. Patient received anticipatory guidance and reasons to seek care in ED reviewed with understanding voiced. Differential Diagnosis Differential Diagnosis: Differential diagnostic considerations for upper respiratory infection include upper respiratory infection, croup, otitis media, sinusitis, viral infection, bronchitis, influenza, pharyngitis, strep, uvulitis.? Lab Data MDM Lab Attestation statement: I personally reviewed the patient's lab results. Lab results narrative: strep screen negative, culture sent Critical Care Time Critical Care Time Critical Care Time: No Discharge Plan Discharge Clinical Impression: Pharyngitis Qualifiers: Pharyngitis/tonsillitis etiology: unspecified etiology Qualified Code(s): J02.9 - Acute pharyngitis, unspecified Patient Disposition: Home Condition: Stable Instructions: Antibiotic Form, Pharyngitis (ED) Additional Instructions: Increase fluids especially juices and water Zyrtec or Claritin or Sagrario daily may take Tylenol or ibuprofen for any fever pain for package instructions heat to the face 20-30 minutes 4-6 times a day for pain Salt water gargles, throat lozenges or throat sprays as desired Your strep test today was negative. A throat culture will be sent to the laboratory for further testing. IF the test is positive, you will receive a phone call within 48 hours and an appropriate antibiotic will be initiated at that time. If your symptoms persist, change or worsen significantly before you can contact your personal physician then please, without delay, go to the emergency department for further evaluation. Follow-up with PCP in 7-10 days or sooner if needed Patient Language: Mohawk Prescriptions: No Action No Home Medications Follow-up/Referrals: Maria R Cornell APRN [Primary Care Provider, [facility]] Time of Disposition: 18:03 Quality Bryant Coma Scale Eyes: Open Verbal: Oriented and Alert Motor: Follows Commands Isabelle Coma Total Score: 15
[2025-07-16 18:08] LABS: EDSTREPNEGPOS1 Negative (Negative)
== END 2025-07-16 18:08 | disposition home or self-care (01) ==
PROVIDERS: Emergency Provider Registered Nurse; PCP Nurse Practitioner Adult Health
DX: J02.9 Acute pharyngitis, unspecified (principal)
CPT/HCPCS: 87081; 87880; 99213; G0463